=== PATIENT | female | born 1955 | race African-American/Black ===

== ENCOUNTER 2017-01-21 11:46 | Observation (INO) ==
[2017-01-21] MEDS ORDERED: ONDANSETRON 4 MG/2 ML VIAL IV PRN (12:12)
[2017-01-21] MEDS ORDERED: NITROGLYCERIN SL 0.4 MG TABLET SL PRN (12:12)
[2017-01-21] MEDS ORDERED: METOPROLOL TARTRATE 5 MG/5 ML VIAL IV STA (12:12)
[2017-01-21] MEDS ORDERED: NITROGLYCERIN 2% OINT 1 INCH/GM PACK TOP STA (12:12)
[2017-01-21] MEDS ORDERED: ASPIRIN 325 MG TABLET PO STA (12:12)
[2017-01-21] MEDS ORDERED: NITROGLYCERIN 2% OINT 1 INCH/GM PACK TOP ONE (12:19)
[2017-01-21] MEDS ORDERED: ASPIRIN 325 MG TABLET ONE (12:19)
[2017-01-21] MEDS ORDERED: ONDANSETRON 4 MG/2 ML VIAL ONE (12:19)
[2017-01-21] MEDS ORDERED: METOPROLOL TARTRATE 5 MG/5 ML VIAL IV ONE (12:19)
[2017-01-21 13:41] LABS: Basophils % 0.6 % (0.0-0.8); Eosinophils # 0.3 10*3/uL (0.0-0.87); Eosinophils % 5.6 % (0.00-10.9); Hematocrit 37.2 VOL% (35.7-47.0); Hemoglobin 12.5 GM/DL (12.0-16.0); Immature Granulocytes % 0.2 %; Immature Granulocytes Absolute 0.01 #; Lymphocytes # 1.3 10*3/uL (1.4-4.0); Lymphocytes % 27.6 % (21.3-54.2); Mean Corpuscular HGB Conc 33.6 GM/DL (32-36); Mean Corpuscular Hemoglobin 34 PG (27-34); Mean Corpuscular Volume 101.6 FL (87-102); Mean Platelet Volume 9.7 FL (9.6-12.0); Monocytes # 0.3 10*3/uL (0.11-0.8); Monocytes % 7.3 % (1.7-12.7); Neutrophils # 2.8 10*3/uL (1.4-7.4); Neutrophils % 58.7 % (38.7-73.9); Platelet Count 251 T/CUMM (130-400); Red Blood Count 3.66 MC/CUMM (3.8-5.5); Red Cell Distribution Width 13.4 % (9.3-17.3); White Blood Count 4.7 T/CUMM (4-12)
[2017-01-21] MEDS ORDERED: TISSUE ADHESIVE 1 EACH APPLICATOR TOP ONE (13:50)
[2017-01-21 13:56] LABS: Apearance,Urine CLEAR (Clear); Bilirubin,Urine Negative (Negative); Blood, Urine Negative (Negative); Glucose,Urine (UA) Negative (Negative); Ketones,Urine Negative (Negative); Mucus,Urine Occasional /LPF (Occasional); Nitrite,Urine Negative (Negative); Protein,Urine Negative; Squamous Epithelial Cell,Urine Occasional /HPF (0-10); Urine Color Straw (Yellow); Urine Specific Gravity 1.006 (1.001-1.035); Urine Urobilinogen < 2.0 EU/DL (0.2-1.0); WBC,Urine 1 /HPF (0-6)
[2017-01-21 13:58] LABS: PT Patient Result 10.2 SECS; Partial Thromboplastin Time 26.1 SECS (0-40)
[2017-01-21 14:07] LABS: Alanine Aminotransferase 25 U/L (13-56); Albumin 3.9 G/DL (3.4-5.0); Alkaline Phosphatase 104 U/L (45-117); Aspartate Amino Transferase 14 U/L (0-37); Bilirubin,Total < 0.39 MG/DL (0.2-1.0); Blood Urea Nitrogen 9 MG/DL (7-18); Calcium 8.9 MG/DL (8.5-10.1); Glucose 85 MG/DL (74-106); Osmolality,Calculated 280.1 MOS/KG (273-304); Potassium 3.4 MMOL/L (3.5-5.1); Sodium 142 MMOL/L (136-145); Total Protein 7.5 G/DL (6.4-8.3)
[2017-01-21 14:21] LABS: Barbiturates Screen,Urine Negative (Negative); Benzodiazepines Screen,Urine Positive (Negative); Cannabinoid Screen,Urine Negative (Negative); Opiate Screen,Urine Negative (Negative); Phencyclidine Screen,Urine Negative (Negative)
[2017-01-21] MEDS: ALPRAZolam 0.5 MG TABLET PO PRN ×2 (16:58→23:40)
[2017-01-21] MEDS: POTASSIUM CHLORIDE 20 MEQ TABLET PO PRN ×3 (18:34→23:39)
[2017-01-21] MEDS ORDERED: TEMAZEPAM 15 MG CAPSULE PO SCH (21:00)
[2017-01-21] MEDS: PROPRANOLOL 10 MG TABLET PO SCH (21:17)
[2017-01-21] MEDS: cloNIDine 0.1 MG TABLET PO SCH (21:17)
[2017-01-21] MEDS: DILTIAZEM 30 MG TABLET PO SCH (21:17)
[2017-01-22 06:47] LABS: Basophils % 0.8 % (0.0-0.8); Eosinophils # 0.3 10*3/uL (0.0-0.87); Eosinophils % 6.8 % (0.00-10.9); Hematocrit 33.6 VOL% (35.7-47.0); Hemoglobin 11.3 GM/DL (12.0-16.0); Immature Granulocytes % 0.3 %; Immature Granulocytes Absolute 0.01 #; Lymphocytes # 1.1 10*3/uL (1.4-4.0); Lymphocytes % 27.1 % (21.3-54.2); Mean Corpuscular HGB Conc 33.6 GM/DL (32-36); Mean Corpuscular Hemoglobin 34 PG (27-34); Mean Corpuscular Volume 101.5 FL (87-102); Mean Platelet Volume 9.8 FL (9.6-12.0); Monocytes # 0.3 10*3/uL (0.11-0.8); Monocytes % 8.6 % (1.7-12.7); Neutrophils # 2.2 10*3/uL (1.4-7.4); Neutrophils % 56.4 % (38.7-73.9); Platelet Count 205 T/CUMM (130-400); Red Blood Count 3.31 MC/CUMM (3.8-5.5); Red Cell Distribution Width 13.5 % (9.3-17.3)
[2017-01-22 07:30] LABS: Calcium 8.2 MG/DL (8.5-10.1); Free T4 (Free Thyroxine) 0.81 NG/DL (0.76-1.46); Magnesium 2.1 MG/DL (1.8-2.4); Osmolality,Calculated 281.3 MOS/KG (273-304); Potassium 3.7 MMOL/L (3.5-5.1); Thyroid Stimulating Hormone 5.73 uIU/ml (0.358-3.74)
[2017-01-22] MEDS ORDERED: PANTOPRAZOLE 40 MG TABLET PO SCH (09:00)
[2017-01-22] MEDS ORDERED: LEVOTHYROXINE 100 MCG TABLET PO SCH (09:00)
[2017-01-22] MEDS ORDERED: ASPIRIN 325 MG TABLET PO SCH (09:00)
[2017-01-22] MEDS: DILTIAZEM 30 MG TABLET PO SCH (09:07)
[2017-01-22] MEDS: POTASSIUM CHLORIDE 20 MEQ TABLET PO PRN (09:07)
[2017-01-22] MEDS: cloNIDine 0.1 MG TABLET PO SCH (09:07)
[2017-01-22] MEDS: PROPRANOLOL 10 MG TABLET PO SCH (09:08)
[2017-01-22] MEDS ORDERED: BUTALBITAL/ACETAMIN/CAFFEINE 50-325-40 MG TABLET PO PRN (13:38)
[2017-01-22] MEDS ORDERED: MAGNESIUM HYDROXIDE SUSP 30 ML UDCUP PO PRN (16:09)
[2017-01-22] MEDS ORDERED: CLOPIDOGREL 75 MG TABLET PO SCH (16:30)
[2017-01-22 17:51] VITALS: BP 147/73
[2017-01-22] MEDS ORDERED: ROSUVASTATIN 10 MG TABLET PO SCH (21:00)
== END 2017-01-22 18:27 | disposition home or self-care (01) ==
LOC: N.EDINP 11:46 → N.ED 11:46 → N.EDINP 15:41 → N.TELEN 15:47
PROVIDERS: ADMIT Internal Medicine; ATTEND Internal Medicine